=== PATIENT | male | born 1990 | race Caucasian/White ===

== ENCOUNTER 2017-02-14 11:43 | Emergency (ER) | payer OTHER ==
[2017-02-14 11:55] VITALS: RESP 16
[2017-02-14] MEDS ORDERED: TDAP ADULT 0.5 ML INJ (BOOSTRIX) IM ONE (14:00)
--- NOTE | 2017-02-14 14:00 | EDPHY ---
H & P Time Seen by Provider: 02/14/17 12:07 HPI/ROS: CHIEF COMPLAINT: Left middle finger injury HISTORY OF PRESENT ILLNESS: 26-year-old male presents to the emergency department with injury to his left middle finger. The patient was at work and accidentally cut his finger on a thermometer cover. He is right-hand dominant. He is unsure of his last tetanus shot. ROS: Denies numbness or tingling in his fingers, retained foreign body. Past Medical/Surgical History: Negative Social History: Single Smoking Status: Never smoked Physical Exam: On examination the patient has a 3 cm irregular flap laceration to the dorsal aspect of his left 3rd finger overlying PIP joint. He has full range of motion of his fingers. He has normal sensation to light touch with normal 2 point discrimination. Strong radial pulse at the left wrist. No palpable bony tenderness or deformity. Constitutional: Initial Vital Signs Temperature (C) 36.9 C 02/14/17 11:52 Heart Rate 74 02/14/17 11:52 Respiratory Rate 16 02/14/17 11:52 Blood Pressure 110/76 02/14/17 11:52 O2 Sat (%) 97 02/14/17 11:52 O2 Delivery Mode Room Air Allergies/Adverse Reactions: No Known Allergies Allergy (Unverified 02/14/17 11:52) Home Medications: Medication Instructions Recorded NK [No Known Home Meds] 02/14/17 MDM/Departure - MDM Procedures: Laceration repair. Verbal consent was obtained from the patient. The 3 cm irregular laceration on the left middle finger was anesthetized using digital block using 1% lidocaine without epinephrine 0.5% bupivacaine without epinephrine. The wound was irrigated with saline, draped and explored to its base with a gloved finger. There were no deep structures involved. No tendon injury was identified. The wound was repaired with 4 0 Ethilon, 7 sutures. The wound repair was simple. The procedure was performed by myself. Medications Given: Discontinued Medications Diphtheria/Tetanus/Acell Pertussis (Boostrix) 0.5 ml IM .ONCE ONE Stop: 02/14/17 14:01 Last Admin: 02/14/17 14:11 Dose: 0.5 ml ED Course/Re-evaluation: 26-year-old male presents to the emergency department with left middle finger injury. Laceration was repaired, see procedure note. He declined x-rays. His tetanus shot was updated. He was given wound care precautions. - Depart Disposition: Home, Routine, Self-Care Clinical Impression: Laceration of left middle finger Qualifiers: Encounter type: initial encounter Damage to nail status: without damage Foreign body presence: without foreign body Qualified Code(s): S61.213A - Laceration without foreign body of left middle finger without damage to nail, initial encounter Condition: Good Instructions: Care For Your Stitches (ED), Laceration (ED), Acute Wounds (ED) Additional Instructions: Wound Care Follow-Up: Removal of sutures in 10 days. Suture removal is complimentary in uncomplicated cases. Infection or abnormal findings would require reevaluation by the MD. In that case, you may be billed. Return to the emergency department if you notice any signs or symptoms of infection such as redness, swelling, increased pain, fever, purulent drainage. Referrals: Work Comp Ref/Restrictions [Outside] - As per Instructions Dasha Soto MD [[facility] Primary Care Provider] - As per Instructions ( Primary care provider building construction superintendent)
[2017-02-14 14:15] VITALS: BP 112/78; PULSE 70; O2SAT 98
[2017-02-14 14:16] VITALS: TEMP 98.2
== END 2017-02-14 14:16 | disposition home or self-care (01) ==
PROC: 3E0234Z Introduction of Serum, Toxoid and Vaccine into Muscle, Percutaneous Approach (ICD-10-PCS; principal; 2017-02-14)
PROC: 0HQGXZZ Repair Left Hand Skin, External Approach (ICD-10-PCS; principal; 2017-02-14)
DX: S61.213A Laceration without foreign body of left middle finger without damage to nail, initial encounter (principal); Z23 Encounter for immunization; W26.8XXA Contact with other sharp object(s), not elsewhere classified, initial encounter; Y92.69 Other specified industrial and construction area as the place of occurrence of the external cause; Y99.8 Other external cause status; Y93.89 Activity, other specified

== ENCOUNTER 2018-06-27 19:56 | Emergency (ER) | payer OTHER ==
--- NOTE | 2018-06-27 20:21 | EDPHY ---
H & P Smoking Status: Never smoked Time Seen by Provider: 06/27/18 20:10 HPI/ROS: CHIEF COMPLAINT: Left hand puncture wound HISTORY OF PRESENT ILLNESS: 27-year-old [id number] male with out-of- date tetanus was shocking an oyster work my sustained puncture wound between the 1st and 2nd finger web space. No paresthesia. No sensory motor deficit. No foreign body sensation. PHYSICAL EXAM (Prior to examination, patient consented to physical exam, hands were washed and my usual and customary physical exam procedures followed) 1) GENERAL: Well-developed, well-nourished, alert and oriented. Appears to be in no acute distress. 2) HEAD: Normocephalic 3) HEENT: sclera anicteric 4) LUNGS: Breathing comfortably. 5) SKIN: in the webspace between the 1st and 2nd digit , 1 cm puncture wound/ laceration. 6) MUSCULOSKELETAL: Opposition, abduction, adduction, extension, flexion, intact. (Keshav Steve) Constitutional: Initial Vital Signs Temperature (C) 36.6 C 06/27/18 20:10 Heart Rate 85 06/27/18 20:10 Blood Pressure 113/73 06/27/18 20:10 O2 Sat (%) 96 06/27/18 20:10 O2 Delivery Mode Room Air Allergies/Adverse Reactions: No Known Allergies Allergy (Unverified 02/14/17 11:52) Home Medications: Medication Instructions Recorded Cephalexin [Keflex] 500 mg PO QID 5 Days cap 06/27/18 MDM/Departure - [facility] Procedures: Procedure: Laceration repair. I explained the indications, risks and benefits for both laceration repair and anesthetic administration. Verbal consent was obtained from the patient. The laceration on the left hand was anesthetized using 0.5% bupivicaine with epinephrine. After anesthetic administered the patient was observed for a period of time and had no apparent adverse effects. The wound was cleaned, prepped, draped in normal sterile fashion and explored to its base. No foreign body seen, no foreign bodies palpated. [There were no deep structures involved.wound was closed with 2 simple interrupted 5 O Prolene suture The wound repair was simple. The procedure was performed by myself. Patient has been informed that scarring will occur, although efforts have been made to minimize this. Procedure: Splint A Velcro thumb spica splint was applied by ER cartographic technician in order to reduce stress on the laceration site After application of the splint I returned and re -examined the patient. The splint was adequately immobilizing the joint and distal to the splint the patient's circulation and sensation were intact. Patient shows no signs of compartment syndrome. Was given orthopedic precautions. (Keshav Steve) Medications Given: Discontinued Medications Cephalexin HCl (Keflex) 500 mg PO EDNOW ONE PRN Reason: Protocol Stop: 06/27/18 20:25 Last Admin: 06/27/18 20:36 Dose: 500 mg Diphtheria/Tetanus/Acell Pertussis (Boostrix) 0.5 ml IM .ONCE ONE Stop: 06/27/18 20:49 Last Admin: 06/27/18 20:50 Dose: 0.5 ml ED Course/Re-evaluation: Patient will be started on prophylactic Keflex, given his history of exposure to shocking oysters. Given my usual and customary wound precautions instructions. Follow up with worker's compensation. He feels comfortable being discharged. Care of patient under supervision of secondary supervising physician Dr Modi . (Keshav Steve) The patient was evaluated and managed by the Physician Flying Ii Instructor. My co- signature indicates that I have reviewed this chart and I agree with the findings and plan of care as documented. I am the secondary supervising physician. (Bernarda Modi) - Depart Disposition: Home, Routine, Self-Care Clinical Impression: Puncture wound of left hand Qualifiers: Encounter type: initial encounter Foreign body presence: unspecified Qualified Code(s): S61.432A - Puncture wound without foreign body of left hand, initial encounter Condition: Good Instructions: Puncture Wound (ED) Additional Instructions: Return to the ER if you develop redness, swelling, discharge, warmth to the wound, red streaks going up your arm, or any other symptoms that concern you. Stand Alone Forms: Work Comp Follow Up Prescriptions: Cephalexin [Keflex] 500 mg PO QID 5 Days cap Referrals: Shyam Aldridge MD [Medical Doctor] - 2-3 days, call for appt.
[2018-06-27] MEDS ORDERED: CEPHALEXIN 500 MG CAP PO ONE (20:24)
[2018-06-27] MEDS ORDERED: TDAP ADULT 0.5 ML INJ (BOOSTRIX) IM ONE ×2 (20:48→20:49)
[2018-06-27 21:10] VITALS: BP 110/76
== END 2018-06-27 21:09 | disposition home or self-care (01) ==
PROC: 0HQGXZZ Repair Left Hand Skin, External Approach (ICD-10-PCS; principal; 2018-06-27)
DX: S61.432A Puncture wound without foreign body of left hand, initial encounter (principal); W26.8XXA Contact with other sharp object(s), not elsewhere classified, initial encounter; Y92.9 Unspecified place or not applicable; Y93.9 Activity, unspecified; Y99.9 Unspecified external cause status
CPT/HCPCS: L3807